=== PATIENT | female | born 1980 | race Caucasian/White ===

== ENCOUNTER → 2024-01-16 06:27 | Day surgery (SDC) | payer BC, SELFPAY | LOC: GI 06:27 | PROVIDERS: ATTENDING PHYSICIAN Internal Medicine | DX: Z12.11 Encounter for screening for malignant neoplasm of colon (principal); K59.00 Constipation, unspecified; K63.5 Polyp of colon; Q43.8 Other specified congenital malformations of intestine | CPT/HCPCS: 45380; 88305 ==